=== PATIENT | male | born 1990 | race Caucasian/White ===

== ENCOUNTER 2017-06-27 07:51 | Emergency (ER) | payer MEDICAID ==
[2017-06-27 09:10] LABS: ALBUMIN 4.4 g/dL (3.4-5.0); ALKALINE PHOSPHATASE 68 U/L (46-116); ALT (SGPT) 84 U/L (10-68); CALC OSMOLALITY 277 mosm/kg (275-300); CALCIUM 9.5 mg/dL (8.5-10.1); CARBON DIOXIDE 27.4 mmol/L (21.0-32.0); CHLORIDE - SERUM 104 mmol/L (98-107); CREATININE - SERUM 0.9 mg/dL (0.6-1.3); GLUCOSE 96 mg/dL (74-106); POTASSIUM - SERUM 4.3 mmol/L (3.5-5.1); PROTEIN - SERUM 8.1 g/dL (6.4-8.2); SODIUM 139 mmol/L (136-145); UREA NITROGEN 13 mg/dL (7-18); eGFR NON AFRICAN AMERICAN > 90 mL/min (90-120)
== END 2017-06-27 09:38 | disposition home or self-care (01) ==
LOC: D.ER 07:51
PROVIDERS: Emergency Medicine
DX: R51 Headache (principal); I10 Essential (primary) hypertension; F17.200 Nicotine dependence, unspecified, uncomplicated

== ENCOUNTER 2017-10-10 15:34 | Emergency (ER) | payer MEDICAID | END 2017-10-10 16:44 | disposition home or self-care (01) | LOC: D.ER 15:34 | DX: J11.1 Influenza due to unidentified influenza virus with other respiratory manifestations (principal); R05 Cough ==

== ENCOUNTER 2017-12-11 11:52 | Emergency (ER) | payer MEDICAID ==
[2017-12-11 12:42] LABS: APPEARANCE CLEAR (CLEAR); BILIRUBIN NEGATIVE (NEGATIVE); COLOR YELLOW (YELLOW); GLUCOSE NEGATIVE (NEGATIVE); KETONE NEGATIVE (NEGATIVE); NITRITE NEGATIVE (NEGATIVE); PROTEIN NEGATIVE (NEGATIVE); SPECIFIC GRAVITY 1.015 (1.005-1.020); UROBILINOGEN NORMAL (NORMAL)
[2017-12-11 13:23] LABS: BASOPHILS 0.3 % (0-2); EOSINOPHILS 1.9 % (0-7); HEMATOCRIT 47.2 % (42.0-54.0); HEMOGLOBIN 15.8 g/dL (13.5-17.5); IMMATURE GRANULOCYTES 0.2 % (0-5); LYMPHOCYTES 22.3 % (15-50); MCH 28.9 pg (26.0-34.0); MCHC 33.5 g/dL (31.0-37.0); MCV 86.3 fL (80.0-100.0); MEAN PLATELET VOLUME 11.2 fL (7.4-10.4); MONOCYTES 6.2 % (2-11); NEUTROPHILS 69.1 % (40-80); PLATELET COUNT 153 10x3/uL (130-400); RBC 5.47 10x6/uL (4.20-6.10); RDW 12.9 % (11.5-14.5); WBC 6.5 10x3/uL (4.8-10.8)
[2017-12-11 13:44] LABS: CALC OSMOLALITY 278 mosm/kg (275-300); CALCIUM 9.1 mg/dL (8.5-10.1); CARBON DIOXIDE 28.1 mmol/L (21.0-32.0); CHLORIDE - SERUM 103 mmol/L (98-107); CREATININE - SERUM 0.9 mg/dL (0.6-1.3); GLUCOSE 99 mg/dL (74-106); POTASSIUM - SERUM 3.9 mmol/L (3.5-5.1); SODIUM 140 mmol/L (136-145); UREA NITROGEN 12 mg/dL (7-18); eGFR NON AFRICAN AMERICAN > 90 mL/min (90-120)
== END 2017-12-11 14:14 | disposition home or self-care (01) ==
LOC: D.ER 11:52
PROVIDERS: Emergency Medicine
DX: S39.012A Strain of muscle, fascia and tendon of lower back, initial encounter (principal); X58.XXXA Exposure to other specified factors, initial encounter; Y93.89 Activity, other specified; Y92.89 Other specified places as the place of occurrence of the external cause; F17.200 Nicotine dependence, unspecified, uncomplicated; I10 Essential (primary) hypertension

== ENCOUNTER 2018-04-05 10:57 | Emergency (ER) | payer MEDICAID ==
[~2018-04-05] VITALS: Ht 185.4 cm; Wt 165.9 kg
[2018-04-05 11:07] VITALS: Ht 185.4 cm; Wt 165.9 kg
[2018-04-05] MEDS ORDERED: PRINZIDE 20/12.1 TA1 PO (11:10)
[2018-04-05] MEDS ORDERED: ZEBETA5 MG PO (11:11)
[2018-04-05 12:04] LABS: BASOPHILS 0.7 % (0-2); EOSINOPHILS 1.7 % (0-7); IMMATURE GRANULOCYTES 0.1 % (0-5); LYMPHOCYTES 20.8 % (15-50); MCV 85.3 fL (80.0-100.0); MONOCYTES 7.7 % (2-11); RBC 5.51 10x6/uL (4.20-6.10); WBC 7.7 10x3/uL (4.8-10.8)
[2018-04-05 12:07] LABS: PLATELET COUNT 186 10x3/uL (130-400)
[2018-04-05 12:09] LABS: APPEARANCE HAZY (CLEAR); COLOR STRAW (YELLOW); NITRITE NEGATIVE (NEGATIVE); SPECIFIC GRAVITY 1.005 (1.005-1.020)
[2018-04-05 12:10] LABS: BILIRUBIN NEGATIVE (NEGATIVE); GLUCOSE NEGATIVE (NEGATIVE); KETONE NEGATIVE (NEGATIVE); PROTEIN NEGATIVE (NEGATIVE); UROBILINOGEN NORMAL (NORMAL)
[2018-04-05 12:22] LABS: ALKALINE PHOSPHATASE 54 U/L (46-116); ALT (SGPT) 41 U/L (10-68); BILIRUBIN - TOTAL 0.48 mg/dL (0.2-1.3); CALC OSMOLALITY 279 mosm/kg (275-300); CALCIUM 9.7 mg/dL (8.5-10.1); CARBON DIOXIDE 33.5 mmol/L (21.0-32.0); CHLORIDE - SERUM 104 mmol/L (98-107); GLUCOSE 91 mg/dL (74-106); POTASSIUM - SERUM 4.7 mmol/L (3.5-5.1); PROTEIN - SERUM 7.7 g/dL (6.4-8.2); SODIUM 141 mmol/L (136-145); UREA NITROGEN 11 mg/dL (7-18); eGFR NON AFRICAN AMERICAN > 90 mL/min (90-120)
[2018-04-05 14:42] VITALS: BP 113/73
== END 2018-04-05 14:43 | disposition home or self-care (01) ==
LOC: D.ER 10:57
PROVIDERS: Emergency Medicine
DX: R11.2 Nausea with vomiting, unspecified (principal); R19.7 Diarrhea, unspecified; I10 Essential (primary) hypertension; F17.200 Nicotine dependence, unspecified, uncomplicated

== ENCOUNTER 2019-02-24 07:24 | Emergency (ER) | payer MEDICAID ==
[2018-04-05 11:07] VITALS: Ht 185.4 cm; Wt 173.6 kg
[~2019-02-24] VITALS: Ht 185.4 cm; Wt 173.6 kg
[~2019-02-24 07:24] MED LIST: PRINZIDE 20/12.1 TA1 PO; ZEBETA5 MG PO
[2019-02-24] MEDS ORDERED: LEVOXYL25 MCG PO (07:32)
[2019-02-24] MEDS ORDERED: KEFLEX500 MG PO (07:42)
[2019-02-24] MEDS ORDERED: CLEOCIN HCL300 MG PO (07:42)
[2019-02-24 08:30] VITALS: BP 141/80
== END 2019-02-24 08:27 | disposition home or self-care (01) ==
LOC: D.ER 07:24
DX: L03.213 Periorbital cellulitis (principal)

== ENCOUNTER 2021-02-09 09:08 | Day surgery (SDC) | payer BC ==
[~2021-02-09] VITALS: Ht 185.4 cm; Wt 177.3 kg
[~2021-02-09 09:08] MED LIST changes: +CLEOCIN HCL300 MG PO; +KEFLEX500 MG PO; +LEVOXYL25 MCG PO
[2021-02-09 09:31] VITALS: Ht 185.4 cm; Wt 177.3 kg
[2021-02-09 10:19] LABS: BASOPHILS 0.8 % (0-2); EOSINOPHILS 3.1 % (0-7); HEMATOCRIT 49.5 % (42.0-54.0); HEMOGLOBIN 16.5 g/dL (13.5-17.5); IMMATURE GRANULOCYTES 0.2 % (0-5); LYMPHOCYTE ABS# 1.68 10x3/uL (1.32-3.57); MCH 28.2 pg (26.0-34.0); MCHC 33.3 g/dL (31.0-37.0); MCV 84.5 fL (80.0-100.0); MEAN PLATELET VOLUME 10.7 fL (7.4-10.4); MONOCYTES 8.7 % (2-11); NEUTROPHIL ABS# 3.96 10x3/uL (1.78-5.38); NEUTROPHILS 61.2 % (40-80); PLATELET COUNT 162 10x3/uL (130-400); RBC 5.86 10x6/uL (4.20-6.10); RDW 13.6 % (11.5-14.5); WBC 6.5 10x3/uL (4.8-10.8)
[2021-02-09 10:27] LABS: CALC OSMOLALITY 271 mosm/kg (275-300); CALCIUM 9.1 mg/dL (8.5-10.1); CARBON DIOXIDE 29.4 mmol/L (21.0-32.0); CHLORIDE - SERUM 102 mmol/L (98-107); CREATININE - SERUM 1.1 mg/dL (0.6-1.3); GLUCOSE 95 mg/dL (74-106); POTASSIUM - SERUM 3.8 mmol/L (3.5-5.1); SODIUM 137 mmol/L (136-145); UREA NITROGEN 8 mg/dL (7-18); eGFR NON AFRICAN AMERICAN 84 mL/min (90-120)
[2021-02-09 10:33] LABS: ALBUMIN 3.9 g/dL (3.4-5.0); ALKALINE PHOSPHATASE 64 U/L (30-120); ALT (SGPT) 55 U/L (10-68); BILIRUBIN - TOTAL 0.49 mg/dL (0.2-1.3); PROTEIN - SERUM 7.8 g/dL (6.4-8.2)
[2021-02-09 10:40] VITALS: BP 116/60
[2021-02-09 11:00] VITALS: BP 114/56
--- NOTE | 2021-02-09 11:00 | NUR ---
DR. MILAN HERE
[2021-02-09 11:48] VITALS: BP 109/54
[2021-02-09 12:39] VITALS: BP 116/60
[2021-02-09] MEDS ORDERED: BACTRIM DS TAB1 EAC1 PO (13:27)
[2021-02-09] MEDS ORDERED: TYLENOL W/CODEI1 TAB PO (13:27)
== END 2021-02-09 14:15 | disposition home or self-care (01) ==
LOC: D.ER 09:08 → D.MS 11:05 → D.OPS 12:39
PROVIDERS: Family Medicine; ATTEND Surgery
DX: L02.211 Cutaneous abscess of abdominal wall (principal); I10 Essential (primary) hypertension; R10.32 Left lower quadrant pain